=== PATIENT | female | born 1955 | race Caucasian/White ===

== ENCOUNTER → 2020-11-28 | Outpatient (CLI) | payer MEDICARE | END | disposition home or self-care (01) | LOC: RESCLI 08:22 | PROVIDERS: ATTEND Student in an Organized Health Care Education/Training Program | DX: F41.8 Other specified anxiety disorders (principal); E55.9 Vitamin D deficiency, unspecified; E78.2 Mixed hyperlipidemia; D68.59 Other primary thrombophilia; Z79.899 Other long term (current) drug therapy; Z90.49 Acquired absence of other specified parts of digestive tract; Z98.51 Tubal ligation status ==

== ENCOUNTER → 2021-07-17 | Outpatient (CLI) | payer MEDICARE | END | disposition home or self-care (01) | LOC: COVID19 16:14 | PROVIDERS: ATTEND Internal Medicine | DX: Z20.822 Contact with and (suspected) exposure to COVID-19 (principal) ==

== ENCOUNTER → 2021-11-28 | Outpatient (CLI) | payer MEDICARE | END | disposition home or self-care (01) | LOC: RESCLI 00:20 | PROVIDERS: ATTEND Internal Medicine Nephrology | DX: F41.8 Other specified anxiety disorders (principal); E55.9 Vitamin D deficiency, unspecified; E78.2 Mixed hyperlipidemia; D68.59 Other primary thrombophilia; Z79.899 Other long term (current) drug therapy ==

== ENCOUNTER → 2022-12-17 | Outpatient (CLI) | payer MEDICARE | END | disposition home or self-care (01) | LOC: RESCLI 01:21 | PROVIDERS: ATTEND Internal Medicine | DX: D68.59 Other primary thrombophilia (principal); E78.2 Mixed hyperlipidemia; E55.9 Vitamin D deficiency, unspecified; K59.00 Constipation, unspecified; Z98.890 Other specified postprocedural states; Z82.49 Family history of ischemic heart disease and other diseases of the circulatory system; Z79.01 Long term (current) use of anticoagulants; Z79.899 Other long term (current) drug therapy ==

== ENCOUNTER 2023-03-14 15:53 | Emergency (ER) | payer MEDICARE ==
[~2023-03-14] VITALS: Ht 160 cm; Wt 127.0 kg
[2023-03-14] VITALS (13 sets, daily range): BP systolic 81–124; BP diastolic 22–63
[2023-03-14 16:53] LABS: BASO % 0.4 % (0.0-1.0); EOS # 0.1 10*3/uL (0.0-0.4); EOS % 2.4 % (1.0-4.0); HEMATOCRIT 52.8 % (37.0-47.0); LYMPH # 2.3 10*3/uL (1.3-4.4); LYMPH % 49.4 % (27.0-41.0); MEAN CELL VOLUME 96.9 fl (81.0-99.0); MEAN CORPUSCULAR HGB 30.5 pg (27.0-31.0); MEAN CORPUSCULAR HGB CONC 31.4 g/dl (33.0-37.0); MONO % 0.6 % (3.0-9.0); NEUT # 2.2 10*3/uL (2.3-7.9); PLATELET COUNT AUTOMATED 225 10*3/uL (130-400); RED BLOOD COUNT 5.45 10*6/uL (4.10-5.10); RED CELL DISTRI WIDTH 14.6 % (0-14.5); WHITE BLOOD COUNT 4.7 10*3/uL (4.8-10.8)
[2023-03-14 17:06] LABS: ACT PARTIAL THROMBO TIME 27.6 SECONDS (20.0-32.1); INTERNATIONAL NORM RATIO 1.5 (2.0-3.5)
[2023-03-14 17:12] LABS: LIPASE 153 U/L (12-53)
[2023-03-14 17:41] LABS: POTASSIUM 3.6 mmol/L (3.4-5.1); TOTAL PROTEIN 7.1 gm/dL (6.0-8.0)
[2023-03-14 20:08] LABS: BASO # 0.1 10*3/uL (0.0-0.1); BASO % 0.4 % (0.0-1.0); EOS # 0.1 10*3/uL (0.0-0.4); EOS % 0.4 % (1.0-4.0); HEMATOCRIT 54.8 % (37.0-47.0); LYMPH # 1.7 10*3/uL (1.3-4.4); LYMPH % 12.4 % (27.0-41.0); MEAN CORPUSCULAR HGB 30.6 pg (27.0-31.0); MEAN CORPUSCULAR HGB CONC 29.9 g/dl (33.0-37.0); MEAN PLATELET VOLUME 11.2 fl (9.6-12.3); MONO # 0.5 10*3/uL (0.1-1.0); MONO % 3.3 % (3.0-9.0); NEUT # 11.5 10*3/uL (2.3-7.9); PLATELET COUNT AUTOMATED 194 10*3/uL (130-400); RED BLOOD COUNT 5.36 10*6/uL (4.10-5.10); RED CELL DISTRI WIDTH 14.8 % (0-14.5); WHITE BLOOD COUNT 13.8 10*3/uL (4.8-10.8)
[2023-03-14 20:09] LABS: MEAN CELL VOLUME 102.2 fl (81.0-99.0)
[2023-03-15] VITALS: BP 97/60
[2023-03-15 00:30] VITALS: BP 123/59
[2023-03-15 00:41] VITALS: BP 112/69
[2023-03-15] MEDS ORDERED: DOCUSATE SOD100 MG PO (03:24)
[2023-03-15] MEDS ORDERED: VITAMIN D325 MC1 PO (03:24)
[2023-03-15] MEDS ORDERED: ASPIRIN ADULT L81 M1 PO (03:30)
[2023-03-15] MEDS ORDERED: PRAVASTATIN SOD10 MG PO (03:30)
[2023-03-15] MEDS ORDERED: ZESTRIL10 MG PO (03:30)
[2023-03-15] MEDS ORDERED: MYRBETRIQ25 M1 PO (03:30)
[2023-03-15] MEDS ORDERED: XARELTO2.5 MG PO (03:31)
[2023-03-15] MEDS ORDERED: ZOLOFT25 MG PO (03:31)
== END 2023-03-15 06:14 | disposition short-term general hospital (02) ==
LOC: ED 15:53
PROVIDERS: Emergency Medicine; Internal Medicine
DX: R65.21 Severe sepsis with septic shock (principal); K92.2 Gastrointestinal hemorrhage, unspecified; J18.9 Pneumonia, unspecified organism; I10 Essential (primary) hypertension; E78.5 Hyperlipidemia, unspecified